=== PATIENT | female | born 1980 | race Asian ===

== ENCOUNTER 2021-08-20 20:43 | Emergency (ER) | payer BC, OTHER ==
[~2021-08-20] VITALS: Ht 167.6 cm; Wt 98.7 kg
[~2021-08-20 20:43] MED LIST: PRENATAL VITAMIN
[2021-08-20] MEDS ORDERED: IOHEXOL-350 100 ML BOTTLE ONE (23:22)
[2021-08-20] MEDS ORDERED: ETOMIDATE 2MG/ML 10ML VIAL IV ONE (23:45)
[2021-08-20] MEDS ORDERED: ROCURONIUM BROMIDE 10MG/ML VIAL 5ML IV ONE (23:45)
[2021-08-21] MEDS ORDERED: PROPOFOL 10MG/ML 100ML 100 ML IV ONE
[2021-08-21 00:09] LABS: CHLORIDE 111 mEq/L (98-107)
[2021-08-21 00:11] LABS: HEMATOCRIT. 31.5 % (36.0-48.0); HEMOGLOBIN. 8.6 g/dL (12.0-16.0); MEAN CORPUSCULAR VOLUME 73.1 fL (81.0-99.0); MEAN PLATELET VOLUME 8.6 fl (7.4-10.4); PLATELET 186 x1000/uL (130-400); RED BLOOD CELL COUNT 4.31 mill/uL (4.2-5.4); RED CELL DISTRIBUTION WIDTH 32.8 % (11.6-14.6)
[2021-08-21 00:19] LABS: ETHANOL BLOOD < 10 mg/dL
[2021-08-21 00:48] VITALS: BP 160/99
[2021-08-21 00:57] LABS: CLARITY URINE CLEAR (CLEAR); COLOR URINE YELLOW (YELLOW); KETONES URINE NEGATIVE (NEGATIVE); LEUKOCYTE ESTERASE URINE NEGATIVE (NEGATIVE); NITRITE URINE NEGATIVE (NEGATIVE); OCCULT BLOOD URINE 2+ (NEGATIVE); PH URINE 6.5 (4.5-8.0); PROTEIN URINE 1+ (NEGATIVE); SPECIFIC GRAVITY URINE 1.063 (1.005-1.030)
[2021-08-21 01:12] LABS: *AMPHETAMINES SCREEN URINE NEGATIVE (NEGATIVE); *BARBITURATES SCREEN URINE NEGATIVE (NEGATIVE); *BENZODIAZEPINES SCREEN URINE NEGATIVE (NEGATIVE); *COCAINE SCREEN URINE NEGATIVE (NEGATIVE); CANNABINOID URINE SCREEN NEGATIVE (NEGATIVE); METHADONE URINE SCREEN NEGATIVE (NEGATIVE); OPIATES URINE SCREEN NEGATIVE (NEGATIVE); PHENCYCLIDINE URINE SCREEN NEGATIVE (NEGATIVE)
[2021-08-21 05:09] LABS: PLATELET ESTIMATE NORMAL
[2021-08-21] MEDS ORDERED: ETOMIDATE 2MG/ML 10ML VIAL IV ONE (08:57)
[2021-08-21] MEDS ORDERED: SODIUM CHLORIDE 0.9% 10ML VIAL ONE (08:57)
== END 2021-08-21 00:47 | disposition short-term general hospital (02) ==
LOC: ER 20:43
DX: J96.00 Acute respiratory failure, unspecified whether with hypoxia or hypercapnia (principal); R41.82 Altered mental status, unspecified; R11.2 Nausea with vomiting, unspecified
CPT/HCPCS: 31500; 36415; 70450; 70496; 70498; 71045; 80053; 80305; 80320; 81001; 82962; 83690; 84484; 85025; 93005; 99291; J2704; J3490; Q9967; Z7610; 94002; G0480